=== PATIENT | female | born 2000 | race African-American/Black ===

== ENCOUNTER 2021-07-30 01:13 | Day surgery (SDC) | payer MEDICAID, OTHER ==
[2021-07-30 01:29] VITALS: BMI 33.5
[2021-07-30] MEDS ORDERED: hydrALAZINE 20 MG/ML VIAL SLOW IVP PRN ×2 (01:41)
[2021-07-30] MEDS ORDERED: Lactated Ringer's 1,000 ML IV SCH (01:45)
[2021-07-30] MEDS ORDERED: Ondansetron PF 4 MG/2 ML Vial IVP SCH (02:15)
[2021-07-30 02:18] LABS: #Eosinphils 0.1 10x3/uL (0.0-0.5); #Monocytes 0.5 10x3/uL (0.0-1.1); #Neutrophils 8.8 10x3/uL (1.5-8.4); %Basophils 0.3 % (0.0-2.0); %Eosinophils 0.6 % (0.0-6.0); %Lymphocytes 8.7 % (18.0-47.0); %Monocytes 5.2 % (0.0-10.0); %Neutrophils 84.6 % (40.0-75.0); Hemoglobin 10.2 g/dL (12.0-15.5); Mean Corpuscular HGB CONC 36.8 g/dL (32.0-36.0); Mean Corpuscular Hemoglobin 30.8 pg (27.0-33.0); Mean Corpuscular Volume 83.7 fl (81.6-98.3); Mean Platelet Volume 9.2 fl (7.4-10.4); Platelet Count 256 10x3/uL (150-450); Red Blood Cell (RBC) Count 3.31 10x6/uL (3.90-5.03); White Blood Cell (WBC) Count 10.4 10x3/uL (3.5-10.5)
[2021-07-30 02:35] LABS: ALT (SGPT) 9 U/L (8-55); AST (SGOT) 15 U/L (5-34); Albumin 3.8 g/dL (3.5-5.0); Alkaline Phosphatase 97 U/L (40-110); Anion Gap 14 mmol/L (10-20); BUN (Urea Nitrogen) 6 mg/dL (7.0-18.7); Bilirubin, Total 0.5 mg/dL (0.2-1.2); Calc. Creatinine Clearance 205 mL/min (70-130); Calcium 8.6 mg/dL (7.8-10.44); Carbon Dioxide 20 mmol/L (22-29); Chloride 106 mmol/L (98-107); Globulin 2.6 g/dL (2.4-3.5); Glucose 79 mg/dL (70-105); Potassium 3.7 mmol/L (3.5-5.1); Protein, Total 6.4 g/dL (6.0-8.3); Sodium 136 mmol/L (136-145)
[2021-07-30 03:46] LABS: Bilirubin Neg (Negative); Blood, Urine Negative (Negative); Clarity Clear (Clear); Glucose, Urine (Dipstick) Normal (Negative); Ketone, Urine 50 mg/dL (Negative); Leukocyte Negative (Negative); Nitrite Negative (Negative); Protein, Urine (Dipstick) Negative (Neg-Trace); Specific Gravity, Urine 1.015 (1.002-1.036)
== END 2021-07-30 06:07 | disposition home or self-care (01) ==
LOC: CSHLD/OP 01:13
PROVIDERS: ATTEND Obstetrics & Gynecology
DX: O99.891 Other specified diseases and conditions complicating pregnancy (principal); R10.30 Lower abdominal pain, unspecified; O23.593 Infection of other part of genital tract in pregnancy, third trimester; O36.8130 Decreased fetal movements, third trimester, not applicable or unspecified; O21.2 Late vomiting of pregnancy; Z3A.32 32 weeks gestation of pregnancy; Z88.0 Allergy status to penicillin
CPT/HCPCS: 80053; 81003; 85025; 87480; 87510; 87660; 96360; 96361; 99284

== ENCOUNTER 2021-08-25 03:53 | Day surgery (SDC) | payer OTHER ==
[2021-08-25 04:16] VITALS: BMI 34.2
[2021-08-25] MEDS ORDERED: hydrALAZINE 20 MG/ML VIAL SLOW IVP PRN (04:35)
== END 2021-08-25 05:22 | disposition home or self-care (01) ==
LOC: CSHLD/OP 03:53
PROVIDERS: ATTEND Obstetrics & Gynecology
DX: O99.891 Other specified diseases and conditions complicating pregnancy (principal); M54.50 Low back pain, unspecified; R10.2 Pelvic and perineal pain; O47.1 False labor at or after 37 completed weeks of gestation; Z3A.37 37 weeks gestation of pregnancy; Z88.0 Allergy status to penicillin

== ENCOUNTER 2021-09-04 19:03 | Day surgery (SDC) | payer OTHER ==
[2021-09-04 19:24] VITALS: BMI 35.6
== END 2021-09-04 20:08 | disposition left against medical advice (07) ==
LOC: CSHLD/OP 19:03
PROVIDERS: ATTEND Obstetrics & Gynecology
DX: O36.8130 Decreased fetal movements, third trimester, not applicable or unspecified (principal); Z53.21 Procedure and treatment not carried out due to patient leaving prior to being seen by health care provider; Z3A.38 38 weeks gestation of pregnancy
CPT/HCPCS: 99282

== ENCOUNTER 2021-09-10 07:42 | Day surgery (SDC) | payer OTHER ==
[2021-09-10 08:27] VITALS: BMI 35.9
[2021-09-10] MEDS ORDERED: hydrALAZINE 20 MG/ML VIAL SLOW IVP PRN (08:45)
== END 2021-09-10 09:40 | disposition home or self-care (01) ==
LOC: CSHLD/OP 07:42
PROVIDERS: ATTEND Obstetrics & Gynecology
DX: O47.1 False labor at or after 37 completed weeks of gestation (principal); Z3A.39 39 weeks gestation of pregnancy

== ENCOUNTER 2021-09-11 11:23 | Day surgery (SDC) | payer OTHER | END 2021-09-11 13:20 | disposition home or self-care (01) | LOC: CSHLD/OP 11:23 | PROVIDERS: ATTEND Family Medicine | DX: O36.8130 Decreased fetal movements, third trimester, not applicable or unspecified (principal); Z3A.39 39 weeks gestation of pregnancy | CPT/HCPCS: 76819 ==

== ENCOUNTER 2021-09-13 04:05 | Day surgery (SDC) | payer OTHER ==
[2021-09-13 04:35] VITALS: BMI 32.1
[2021-09-13 05:08] LABS: Fetal Membranes Rupture No Membranes Rupture (No Rupture)
[2021-09-13] MEDS ORDERED: hydrALAZINE 20 MG/ML VIAL SLOW IVP PRN (05:41)
== END 2021-09-13 05:45 | disposition home or self-care (01) ==
LOC: CSHLD/OP 04:05
PROVIDERS: ATTEND Family Medicine
DX: O47.1 False labor at or after 37 completed weeks of gestation (principal); O99.891 Other specified diseases and conditions complicating pregnancy; N89.8 Other specified noninflammatory disorders of vagina; Z3A.39 39 weeks gestation of pregnancy
CPT/HCPCS: 84112; 99284

== ENCOUNTER 2021-09-17 10:11 | Inpatient (IN) | payer OTHER ==
[~2021-09-17 10:11] MED LIST: Bupivacaine 0.25% HCL 30 ML VIAL ONE; Bupivacaine/Epinephrine 0.25% 30 ML VIAL ONE
[2021-09-17 10:53] VITALS: BMI 37.0
[2021-09-17] MEDS ORDERED: Ondansetron PF 4 MG/2 ML Vial IVP PRN (11:02)
[2021-09-17] MEDS ORDERED: Ibuprofen 800 MG TAB PO PRN (11:02)
[2021-09-17] MEDS ORDERED: Diphenoxylate HCl/Atropine Tablet PO PRN (11:02)
[2021-09-17] MEDS ORDERED: Promethazine HCl 25 MG/ML VIAL IM PRN (11:02)
[2021-09-17] MEDS ORDERED: Lidocaine 1% (PF) 30 ML VIAL SC PRN (11:02)
[2021-09-17] MEDS ORDERED: Acetaminophen 500 MG TAB PO PRN (11:02)
[2021-09-17] MEDS ORDERED: hydrALAZINE 20 MG/ML VIAL SLOW IVP PRN (11:02)
[2021-09-17] MEDS ORDERED: Methylergonovine 0.2 MG/ML VIAL IM PRN (11:02)
[2021-09-17] MEDS ORDERED: Misoprostol 200 MCG TAB PR PRN (11:02)
[2021-09-17] MEDS ORDERED: Carboprost 250 MCG/ML AMP IM PRN (11:02)
[2021-09-17] MEDS ORDERED: HYDROcodone/Acetaminophen 5/325 mg Tablet PO PRN (11:02)
[2021-09-17] MEDS ORDERED: NS w/ Oxytocin 30 units 500 ML IV SCH (11:15)
[2021-09-17 11:31] LABS: Hemoglobin 9.6 g/dL (12.0-15.5); Mean Corpuscular HGB CONC 36.8 g/dL (32.0-36.0); Mean Corpuscular Hemoglobin 30.7 pg (27.0-33.0); Mean Corpuscular Volume 83.4 fl (81.6-98.3); Mean Platelet Volume 10.3 fl (7.4-10.4); Platelet Count 283 10x3/uL (150-450); RBC Distribution Width 13.5 % (11.5-14.5); Red Blood Cell (RBC) Count 3.13 10x6/uL (3.90-5.03); White Blood Cell (WBC) Count 10.8 10x3/uL (3.5-10.5)
[2021-09-17] MEDS: Misoprostol 100 MCG TAB VAG SCH ×3 (11:32→23:15)
[2021-09-17 12:27] LABS: Hep B Surf Ag Non-Reactive S/CO (NonReactive); Syphilis Antibody Nonreactive (Nonreactive); Syphilis Antibody Index 0.03 S/CO (<1.00 Non-Reactive)
[2021-09-17 12:32] LABS: HBSAg Index 0.17 S/CO (0-0.99)
[2021-09-17] MEDS: Butorphanol Tartrate 1 MG/ML VIAL SLOW IVP PRN ×2 (14:08→21:20)
[2021-09-17 14:54] LABS: Amphetamine Not Detected (NotDetected); Barbiturates Screen Not Detected (NotDetected); Benzodiazepine Screen Not Detected (NotDetected); Cocaine Metabolite Screen Not Detected (NotDetected); Methadone Not Detected (NotDetected); Methamphetamine Not Detected (NotDetected); Opiate Screen Not Detected (NotDetected); Oxycodone Screen Not Detected (NotDetected); Phencyclidine (PCP) Not Detected (NotDetected); THC/Cannabinoid Screen Detected (NotDetected); Tricyclic Screen Not Detected (NotDetected)
[2021-09-17] MEDS: Lactated Ringer's 1,000 ML IV SCH (19:45)
[2021-09-18] MEDS ORDERED: Fentanyl 2 mcg/Bup 0.1% Cadd 100 ML ONE (00:29)
[2021-09-18] MEDS: Lactated Ringer's 1,000 ML IV SCH ×3 (01:26→09:44)
[2021-09-18] MEDS ORDERED: Moisturizing Cream (Eucerin) 113 GM JAR TOP PRN ×2 (03:28→19:46)
[2021-09-18] MEDS ORDERED: Ondansetron PF 4 MG/2 ML Vial IVP PRN ×2 (03:28→19:46)
[2021-09-18] MEDS ORDERED: Lactated Ringer's 500 ML IV PRN (03:28)
[2021-09-18] MEDS ORDERED: ePHEDrine Sulfate 50 MG/10 ML VIAL SLOW IVP PRN (03:28)
[2021-09-18] MEDS ORDERED: Naloxone HCl 0.4 mg/ml Vial IVP PRN ×4 (03:28→19:46)
[2021-09-18] MEDS ORDERED: diphenhydrAMINE 50 MG/ML VIAL IVP PRN ×2 (03:28→19:46)
[2021-09-18] MEDS ORDERED: Promethazine HCl 25 MG/ML VIAL IM PRN ×2 (03:28→19:46)
[2021-09-18] MEDS ORDERED: Acetaminophen 325 MG TAB PO PRN (03:28)
[2021-09-18] MEDS ORDERED: Communication Order-Pharmacy FS SCH ×2 (03:30→20:00)
[2021-09-18] MEDS: Fentanyl 2 mcg/Bupivacaine 0.1% Cassette 100 ML EPIDURAL SCH ×2 (08:34→14:29)
[2021-09-18] MEDS ORDERED: Bicitra 30 ML UDCUP PO PRN (18:26)
[2021-09-18] MEDS ORDERED: Famotidine/PF 20 mg/2ml Vial SLOW IVP PRN (18:26)
[2021-09-18] MEDS ORDERED: Azithromycin 500 MG in Sodium Chloride 0.9% 250 ML 250 ML IVPB SCH (18:30)
[2021-09-18] MEDS ORDERED: ceFAZolin 2 GM/Dextrose 50 ML 2 GM in Premix Bag 1 BAG IVPB SCH (18:30)
[2021-09-18] MEDS ORDERED: Famotidine/PF 20 mg/2ml Vial ONE (18:31)
[2021-09-18] MEDS ORDERED: Azithromycin 500 MG VIAL ONE (18:31)
[2021-09-18] MEDS ORDERED: CEFAZOLIN 2 GM VIAL ONE (18:31)
[2021-09-18] MEDS ORDERED: Dexamethasone 4 mg/ml Vial ONE (18:38)
[2021-09-18] MEDS ORDERED: ePHEDrine Sulfate 50 MG/10 ML VIAL ONE (18:38)
[2021-09-18] MEDS ORDERED: Oxytocin 10 UNITS/ML VIAL ONE (18:38)
[2021-09-18] MEDS ORDERED: PHENYLEPHRINE-NS 100 MCG/ML 10 ML SYRINGE ONE (18:38)
[2021-09-18] MEDS ORDERED: Ondansetron PF 4 MG/2 ML Vial ONE (18:38)
[2021-09-18] MEDS ORDERED: Lidocaine 2% MPF 10 ML AMP (For Epidural Use) ONE (18:39)
[2021-09-18] MEDS ORDERED: Morphine PF 10 MG/10 ML VIAL ONE (18:56)
[2021-09-18] MEDS ORDERED: Fentanyl 100 MCG/2 ML VIAL ONE (19:25)
[2021-09-18] MEDS ORDERED: Promethazine HCl 25 MG SUPP PR PRN (19:46)
[2021-09-18] MEDS ORDERED: Fentanyl 100 MCG/2 ML VIAL SLOW IVP PRN (19:46)
[2021-09-18] MEDS ORDERED: Naloxone HCl 0.4 mg/ml Vial IV PRN (19:46)
[2021-09-18] MEDS ORDERED: Meperidine HCl/PF 25 MG/ML VIAL SLOW IVP PRN (19:46)
[2021-09-18] MEDS ORDERED: L&D-Morphine 4 MG/ML VIAL SLOW IVP PRN (19:46)
[2021-09-18] MEDS ORDERED: Ketorolac Tromethamine 30 MG/ML VIAL IVP PRN (19:46)
[2021-09-18] MEDS ORDERED: Meperidine HCl/PF 25 MG/ML VIAL ONE (19:56)
[2021-09-18] MEDS ORDERED: Ketorolac Tromethamine 30 MG/ML VIAL IVP SCH (20:00)
[2021-09-18] MEDS ORDERED: Ondansetron HCl/PF 4 MG/2 ML Vial IVP PRN (22:00)
[2021-09-18] MEDS ORDERED: Morphine 4 MG/ML VIAL ONE (22:07)
[2021-09-19] MEDS ORDERED: diphenhydrAMINE 25 MG CAP PO PRN (01:14)
[2021-09-19] MEDS ORDERED: hydrALAZINE 20 MG/ML VIAL SLOW IVP PRN (01:14)
[2021-09-19] MEDS ORDERED: Bisacodyl 10 MG SUPP PR PRN (01:14)
[2021-09-19] MEDS ORDERED: Boostrix 0.5 ML (Tdap) VIAL IM ONE (01:14)
[2021-09-19] MEDS ORDERED: Ondansetron PF 4 MG/2 ML Vial IVP PRN (01:14)
[2021-09-19] MEDS ORDERED: Promethazine HCl 25 MG/ML VIAL IM PRN (01:14)
[2021-09-19] MEDS ORDERED: Lanolin Ointment 7 GM TUBE TOP PRN (01:14)
[2021-09-19] MEDS ORDERED: Ferrous Sulfate 325 MG TAB PO SCH (01:30)
[2021-09-19] MEDS: Ketorolac Tromethamine 30 MG/ML VIAL IVP SCH ×3 (01:30→13:42)
[2021-09-19] MEDS ORDERED: Docusate 100 MG CAP PO SCH (01:45)
[2021-09-19 04:45] LABS: Hemoglobin 9.3 g/dL (12.0-15.5); Mean Corpuscular HGB CONC 37.8 g/dL (32.0-36.0); Mean Corpuscular Hemoglobin 30.7 pg (27.0-33.0); Mean Corpuscular Volume 81.2 fl (81.6-98.3); Mean Platelet Volume 10.4 fl (7.4-10.4); Platelet Count 248 10x3/uL (150-450); RBC Distribution Width 13.4 % (11.5-14.5); Red Blood Cell (RBC) Count 3.03 10x6/uL (3.90-5.03); White Blood Cell (WBC) Count 23.6 10x3/uL (3.5-10.5)
[2021-09-19] MEDS: Prenatal Vitamin 1 TAB PO SCH (07:59)
[2021-09-19] MEDS: Ferrous Sulfate 325 MG TAB PO SCH ×2 (08:00→21:08)
[2021-09-19] MEDS ORDERED: HYDROcodone/Acetaminophen 5/325 mg Tablet PO PRN (08:00)
[2021-09-19] MEDS: Docusate 100 MG CAP PO SCH ×2 (08:00→21:08)
[2021-09-19] MEDS ORDERED: Meperidine HCl/PF 25 MG/ML VIAL IM PRN (08:00)
[2021-09-19] MEDS: HYDROcodone/Acetaminophen 5/325 mg Tablet PO PRN ×3 (09:40→21:09)
[2021-09-19] MEDS: Ibuprofen 800 MG TAB PO SCH (21:08)
[2021-09-20] MEDS: Simethicone Chewable 80 MG TAB PO PRN ×3 (01:27→22:11)
[2021-09-20] MEDS: HYDROcodone/Acetaminophen 5/325 mg Tablet PO PRN ×5 (01:28→22:12)
[2021-09-20] MEDS: Ibuprofen 800 MG TAB PO SCH ×3 (05:33→22:11)
[2021-09-20] MEDS: Docusate 100 MG CAP PO SCH ×2 (08:56→22:11)
[2021-09-20] MEDS: Prenatal Vitamin 1 TAB PO SCH (08:56)
[2021-09-20] MEDS: Ferrous Sulfate 325 MG TAB PO SCH ×2 (08:56→22:11)
[2021-09-20] MEDS: Misoprostol 100 MCG TAB VAG SCH (17:28)
[2021-09-21] MEDS: HYDROcodone/Acetaminophen 5/325 mg Tablet PO PRN ×2 (02:52→08:22)
[2021-09-21] MEDS: Ibuprofen 800 MG TAB PO SCH (06:30)
[2021-09-21] MEDS: Docusate 100 MG CAP PO SCH (08:21)
[2021-09-21] MEDS: Ferrous Sulfate 325 MG TAB PO SCH (08:22)
[2021-09-21] MEDS: Prenatal Vitamin 1 TAB PO SCH (08:22)
[2021-09-21 11:40] VITALS: BP 121/68; TEMP 98.3
== END 2021-09-21 12:38 | disposition home or self-care (01) | DRG 788 ==
LOC: CSHLD 10:11 → CSHPP 09-18 23:03
PROVIDERS: ADMIT Family Medicine; ATTEND Family Medicine
PROC: 10D00Z1 Extraction of Products of Conception, Low, Open Approach (ICD-10-PCS; principal; 2021-09-18)
DX: O99.324 Drug use complicating childbirth (principal); F12.90 Cannabis use, unspecified, uncomplicated; Z3A.39 39 weeks gestation of pregnancy; Z37.0 Single live birth; Z20.822 Contact with and (suspected) exposure to COVID-19; O62.1 Secondary uterine inertia; O32.8XX0 Maternal care for other malpresentation of fetus, not applicable or unspecified
CPT/HCPCS: 36415; 51702; 80306; 85027; 86780; 86850; 86900; 86901; 87340; J0456; J0595; J0690; J1100; J1200; J1885; J2175; J2270; J2274; J2405; J2590; J3010; J7120; S0020; S0028; U0003; U0005

== ENCOUNTER 2023-01-11 20:12 | Emergency (ER) | payer OTHER, SELFPAY | END 2023-01-11 22:07 | disposition left against medical advice (07) | LOC: CSHERS 20:12 | DX: Z53.21 Procedure and treatment not carried out due to patient leaving prior to being seen by health care provider (principal) ==

== ENCOUNTER 2023-12-27 04:55 | Inpatient (IN) | payer OTHER ==
[2023-12-24 13:34] LABS: Hematocrit 27.5 % (34.9-44.5); Platelet Count 266 10x3/uL (150-450)
[2023-12-24 14:23] LABS: Syphilis Antibody Nonreactive (Nonreactive); Syphilis Antibody Index 0.03 S/CO (<1.00 Non-Reactive)
[2023-12-24 14:24] LABS: HBsAg Index 0.21 S/CO (0-0.99); Hep B Surf Ag Non-Reactive S/CO (NonReactive)
[2023-12-27] MEDS ORDERED: Diphenoxylate HCl/Atropine Tablet PO PRN (07:17)
[2023-12-27] MEDS ORDERED: Methylergonovine 0.2 MG/ML VIAL IM PRN (07:17)
[2023-12-27] MEDS ORDERED: Tranexamic Acid 1,000 MG/10 ML VIAL IVP PRN (07:17)
[2023-12-27] MEDS ORDERED: Famotidine/PF 20 mg/2ml Vial SLOW IVP PRN (07:17)
[2023-12-27] MEDS ORDERED: Bicitra 30 ML UDCUP PO PRN (07:17)
[2023-12-27] MEDS ORDERED: hydrALAZINE 20 MG/ML VIAL SLOW IVP PRN ×2 (07:17→12:09)
[2023-12-27] MEDS ORDERED: Ondansetron PF 4 MG/2 ML Vial IVP PRN ×4 (07:17→12:09)
[2023-12-27] MEDS ORDERED: Misoprostol 200 MCG TAB PR PRN (07:17)
[2023-12-27] MEDS ORDERED: Carboprost 250 MCG/ML AMP IM PRN (07:17)
[2023-12-27] MEDS ORDERED: Oxytocin 30 units/NS 500 ML 500 ML IV SCH (07:30)
[2023-12-27] MEDS ORDERED: Lactated Ringer's 1,000 ML IV SCH (07:30)
[2023-12-27] MEDS ORDERED: CEFAZOLIN 2 GM in Sodium Chloride 0.9% 100 ML IVPB SCH (07:30)
[2023-12-27] MEDS ORDERED: fentaNYL 50 mcg/mL 1 mL Vial SLOW IVP PRN (08:38)
[2023-12-27] MEDS ORDERED: HYDROmorphone 0.5 MG/0.5 ML SYRINGE SLOW IVP PRN (08:38)
[2023-12-27] MEDS ORDERED: Ketorolac Tromethamine 30 MG (1 mL) VIAL IVP PRN (08:38)
[2023-12-27] MEDS ORDERED: Moisturizing Cream (Eucerin) 113 GM JAR TOP PRN (08:38)
[2023-12-27] MEDS ORDERED: diphenhydrAMINE 50 MG/ML VIAL IVP PRN (08:38)
[2023-12-27] MEDS ORDERED: Promethazine HCl 25 MG/ML VIAL IM PRN ×2 (08:38→12:09)
[2023-12-27] MEDS ORDERED: Naloxone HCl 0.4 mg/ml Vial IV PRN (08:38)
[2023-12-27] MEDS ORDERED: Meperidine HCl/PF 25 MG (1 mL) VIAL SLOW IVP PRN (08:38)
[2023-12-27] MEDS ORDERED: Naloxone HCl 0.4 mg/ml Vial IVP PRN ×2 (08:38)
[2023-12-27] MEDS ORDERED: Communication Order-Pharmacy FS SCH (08:45)
[2023-12-27] MEDS: Ketorolac Tromethamine 30 MG (1 mL) VIAL IVP SCH ×2 (09:36→15:56)
[2023-12-27] MEDS: Promethazine HCl 25 MG/ML VIAL IM PRN (09:38)
[2023-12-27 11:33] VITALS: BMI 32.8
[2023-12-27] MEDS: Morphine PF 10 MG/10 ML VIAL ONE (11:36)
[2023-12-27] MEDS: Oxytocin 10 UNITS/ML VIAL ONE (11:36)
[2023-12-27] MEDS: Ondansetron PF 4 MG/2 ML Vial ONE (11:36)
[2023-12-27] MEDS: fentaNYL 50 mcg/mL 1 mL Vial ONE (11:36)
[2023-12-27] MEDS: CEFAZOLIN 2 GM VIAL ONE (11:36)
[2023-12-27] MEDS: PHENYLEPHRINE-NS 100 MCG/ML 10 ML SYRINGE ONE (11:36)
[2023-12-27] MEDS: Famotidine/PF 20 mg/2ml Vial ONE (11:37)
[2023-12-27] MEDS ORDERED: Lanolin Ointment 7 GM TUBE TOP PRN (12:09)
[2023-12-27] MEDS ORDERED: Bisacodyl 10 MG SUPP PR PRN (12:09)
[2023-12-27] MEDS ORDERED: Boostrix 0.5 ML (Tdap) VIAL (>/=7 yrs of age) IM ONE (12:09)
[2023-12-27] MEDS ORDERED: diphenhydrAMINE 25 MG CAP PO PRN (12:09)
[2023-12-27] MEDS: fentaNYL 50 mcg/mL 1 mL Vial SLOW IVP PRN (12:12)
[2023-12-27] MEDS: Prenatal Vitamin 1 TAB PO SCH (12:47)
[2023-12-27] MEDS: Ferrous Sulfate 325 MG TAB PO SCH ×2 (12:47→21:18)
[2023-12-27] MEDS: Docusate 100 MG CAP PO SCH ×2 (12:47→21:22)
[2023-12-27] MEDS: HYDROcodone/Acetaminophen 5/325 mg Tablet PO PRN (20:04)
[2023-12-27] MEDS ORDERED: Meperidine HCl/PF 25 MG (1 mL) VIAL IM PRN (20:45)
[2023-12-27] MEDS ORDERED: HYDROcodone/Acetaminophen 5/325 mg Tablet PO PRN (20:45)
[2023-12-28 06:08] LABS: Hematocrit 25.3 % (34.9-44.5); Hemoglobin 9.1 g/dL (12.0-15.5); Mean Corpuscular Hemoglobin 31.2 pg (27.0-33.0); Mean Corpuscular Volume 86.6 fL (81.6-98.3); Mean Platelet Volume 9.6 fL (7.4-10.4); Platelet Count 225 10x3/uL (150-450); RBC Distribution Width 12.9 % (11.5-14.5); Red Blood Cell (RBC) Count 2.92 10x6/uL (3.90-5.03); White Blood Cell (WBC) Count 8.1 10x3/uL (3.5-10.5)
[2023-12-28] MEDS: Prenatal Vitamin 1 TAB PO SCH (09:02)
[2023-12-28] MEDS: Ibuprofen 800 MG TAB PO SCH (16:20)
[2023-12-29] MEDS: Simethicone Chewable 80 MG TAB PO PRN (09:37)
[2023-12-30 08:14] VITALS: BP 116/74; TEMP 97.7
== END 2023-12-30 14:20 | disposition home or self-care (01) | DRG 788 ==
LOC: CSHLD 04:55 → CSHPED 10:45
PROVIDERS: ADMIT Family Medicine; ATTEND Family Medicine
PROC: 10D00Z1 Extraction of Products of Conception, Low, Open Approach (ICD-10-PCS; principal; 2023-12-27)
DX: O34.211 Maternal care for low transverse scar from previous cesarean delivery (principal); Z3A.39 39 weeks gestation of pregnancy; Z37.0 Single live birth; Z88.0 Allergy status to penicillin
CPT/HCPCS: 51702; 85014; 85018; 85027; 85049; 86780; 86850; 86900; 86901; 87340; C1889; J1885; J2274; J2405; J2550; J2590; J3010; J3490